=== PATIENT | male | born 1985 | race Caucasian/White ===

== ENCOUNTER 2024-09-14 13:29 | Emergency (ER) | payer MEDICAID ==
[~2024-09-14] VITALS: Ht 167.6 cm; Wt 77.0 kg
[2024-09-14 13:33] VITALS: TEMP 98.6
[2024-09-14 13:46] LABS: BASOPHILS # (AUTO) 0.1 X10'3 (0-0.2); BASOPHILS % (AUTO) 0.9 % (0-1); EOSINOPHILS # (AUTO) 0.2 X10'3 (0-0.9); HEMOGLOBIN 15.5 g/dl (14.0-17.9); LYMPHOCYTES # (AUTO) 2.3 X10'3 (1.1-4.8); MONOCYTES # (AUTO) 0.5 X10'3 (0-0.9)
[2024-09-14 13:48] LABS: EOSINOPHILS % (AUTO) 3.3 % (0-6); HEMATOCRIT 46.7 % (42.0-52.0); LYMPHOCYTES % (AUTO) 30.1 % (21-51); MEAN CORPUSCULAR HEMOGLOBIN 31.1 PG (27.0-31.0); MEAN CORPUSCULAR HGB CONC 33.2 g/dL (33.0-36.5); MEAN CORPUSCULAR VOLUME 93.5 FL (78-98); MEAN PLATELET VOLUME 7.5 FL (7.4-10.4); MONOCYTES % (AUTO) 7.3 % (2-12); NEUTROPHILS # (AUTO) 4.4 X10'3 (1.8-7.7); NEUTROPHILS % (AUTO) 58.4 % (42-75); PLATELET COUNT 260 X10'3 (140-440); RED BLOOD COUNT 4.99 X10'6 (4.70-6.10); RED CELL DISTRIBUTION WIDTH 13.4 % (11.5-14.5); WHITE BLOOD COUNT 7.5 X10'3 (4.5-11.0)
[2024-09-14 14:00] LABS: ALANINE AMINOTRANSFERASE 34 U/L (12-78); ALBUMIN/GLOBULIN RATIO 0.8 (1.1-1.5); ALKALINE PHOSPHATASE 115 IU/L (46-116); ANION GAP 8 (8-16); ASPARTATE AMINO TRANSFERASE 11 U/L (10-37); BILIRUBIN,TOTAL 0.2 MG/DL (0.1-1.0); BLOOD UREA NITROGEN 12 MG/DL (7-18); CALCIUM 8.4 MG/DL (8.5-10.1); CHLORIDE 105 MMOL/L (99-107); GLUCOSE 138 MG/DL (70-104); POTASSIUM 3.8 MMOL/L (3.5-5.1); SODIUM 140 MMOL/L (135-145); TOTAL CARBON DIOXIDE 26.8 MMOL/L (24-32); TOTAL PROTEIN 6.8 G/DL (6.4-8.2); eCRCL 113 ML/MIN; eGFR > 90 ML/MIN
[2024-09-14 14:11] LABS: PRO BRAIN NATRIURETIC PEPTIDE 70 PG/ML (0-125)
[2024-09-14] MEDS: ketorolac trometh 30MG/ML vial 30 MG/ML VIAL IV ONE (14:27)
[2024-09-14 14:33] LABS: C-REACTIVE PROTEIN 0.33 MG/DL (0.0-0.5)
[2024-09-14] MEDS ORDERED: IBUP-1985 PO (17:16)
[2024-09-14 17:47] VITALS: BP 102/71; PULSE 72; RESP 16; O2SAT 98
== END 2024-09-14 18:21 | disposition home or self-care (01) ==
LOC: ER 13:31
DX: R07.89 Other chest pain (principal); I31.9 Disease of pericardium, unspecified; F17.200 Nicotine dependence, unspecified, uncomplicated
CPT/HCPCS: 36415; 71045; 80053; 83880; 84484; 85025; 85651; 86140; 93005; 96374; 99285; J1885

== ENCOUNTER 2024-10-09 08:49 | Emergency (ER) | payer MEDICAID ==
[~2024-10-09] VITALS: Ht 167.6 cm; Wt 80.0 kg
[~2024-10-09 08:49] MED LIST: IBUP-1985 PO
[2024-10-09 08:53] VITALS: TEMP 98.6
[2024-10-09] MEDS ORDERED: OLAN20TA81 PO (09:03)
[2024-10-09] MEDS ORDERED: NAPR-1480 PO (09:03)
[2024-10-09] MEDS ORDERED: LEVE100023 PO (09:03)
[2024-10-09] MEDS ORDERED: DIVA500T4 PO (09:03)
[2024-10-09] MEDS ORDERED: levetiracetam inj 1,500 MG in normal saline 100ml IV soln 100 ML IV STA (09:06)
[2024-10-09 09:33] LABS: BASOPHILS % (AUTO) 0.4 % (0-1); EOSINOPHILS # (AUTO) 0.2 X10'3 (0-0.9); EOSINOPHILS % (AUTO) 2.2 % (0-6); HEMATOCRIT 42.9 % (42.0-52.0); HEMOGLOBIN 14.6 g/dl (14.0-17.9); LYMPHOCYTES # (AUTO) 2.2 X10'3 (1.1-4.8); LYMPHOCYTES % (AUTO) 26.3 % (21-51); MEAN CORPUSCULAR HEMOGLOBIN 30.5 PG (27.0-31.0); MEAN CORPUSCULAR VOLUME 89.9 FL (78-98); MEAN PLATELET VOLUME 7.5 FL (7.4-10.4); MONOCYTES # (AUTO) 0.6 X10'3 (0-0.9); MONOCYTES % (AUTO) 7.4 % (2-12); NEUTROPHILS # (AUTO) 5.3 X10'3 (1.8-7.7); NEUTROPHILS % (AUTO) 63.7 % (42-75); PLATELET COUNT 214 X10'3 (140-440); RED BLOOD COUNT 4.77 X10'6 (4.70-6.10); WHITE BLOOD COUNT 8.3 X10'3 (4.5-11.0)
[2024-10-09 09:39] LABS: ALANINE AMINOTRANSFERASE 43 U/L (12-78); ALBUMIN 3.3 G/DL (3.4-5.0); ALBUMIN/GLOBULIN RATIO 1.1 (1.1-1.5); ALKALINE PHOSPHATASE 103 IU/L (46-116); ANION GAP 11 (8-16); ASPARTATE AMINO TRANSFERASE 19 U/L (10-37); BILIRUBIN,TOTAL 0.2 MG/DL (0.1-1.0); BLOOD UREA NITROGEN 12 MG/DL (7-18); BUN/CREATININE RATIO 13.5 (10.0-20.0); CALCIUM 8.5 MG/DL (8.5-10.1); CHLORIDE 107 MMOL/L (99-107); CREATININE 0.89 MG/DL (0.60-1.10); GLUCOSE 102 MG/DL (70-104); SODIUM 141 MMOL/L (135-145); TOTAL CARBON DIOXIDE 23.2 MMOL/L (24-32); TOTAL PROTEIN 6.2 G/DL (6.4-8.2); eCRCL 102 ML/MIN; eGFR > 90 ML/MIN
[2024-10-09] MEDS: levetiracetamNACL 1500mg/100mL 100 ML IV STA (09:51)
[2024-10-09] MEDS: divalproex sod 250mg ER (24-hour) tablet PO STA (10:45)
[2024-10-09] MEDS: TETanus/Pertussis (Acell)/Diphther VAC/PF (Tdap-Adult) 0.5ml syringe IMVAC ONE (10:47)
[2024-10-09] MEDS ORDERED: LEVE10002 PO (11:05)
[2024-10-09] MEDS ORDERED: DIVA-81 PO (11:05)
[2024-10-09] MEDS: levetiracetam 250mg tablet PO ONE (11:37)
[2024-10-09 12:08] VITALS: BP 136/87; PULSE 84; RESP 16; O2SAT 96
== END 2024-10-09 11:43 | disposition home or self-care (01) ==
LOC: ER 08:50
DX: G40.409 Other generalized epilepsy and epileptic syndromes, not intractable, without status epilepticus (principal); Z79.899 Other long term (current) drug therapy; Z79.1 Long term (current) use of non-steroidal anti-inflammatories (NSAID); W18.30XA Fall on same level, unspecified, initial encounter; Y93.89 Activity, other specified; Y92.89 Other specified places as the place of occurrence of the external cause; Y99.8 Other external cause status
CPT/HCPCS: 36415; 80053; 85025; 90471; 90715; 93005; 96365; 99284; J1953; A6449

== ENCOUNTER 2024-10-18 19:50 | Emergency (ER) | payer MEDICAID ==
[~2024-10-18] VITALS: Ht 175.3 cm; Wt 97.2 kg
[~2024-10-18 19:50] MED LIST changes: +DIVA-81 PO; +DIVA500T4 PO; +LEVE10002 PO; +LEVE100023 PO; +NAPR-1480 PO; +OLAN20TA81 PO
--- NOTE | 2024-10-18 20:01 | ELECTROCARDIOGRAPH REPORT ---
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 Germania Maza Measurements Intervals [place] Rate: 122 P: 49 [place]: 141 QRS: 135 QRSD: 135 T: 6 QT: 335 QTc: 478 Interpretive Statements Sinus tachycardia RBBB and LPFB Probable inferior infarct, recent Lateral leads are also involved Electronically Signed On 10-18-2024 20:35:[address] Germania Maza Please click the below link to view image of tracing.
[2024-10-18 20:25] LABS: BASOPHILS # (AUTO) 0.1 X10'3 (0-0.2); BASOPHILS % (AUTO) 1.1 % (0-1); EOSINOPHILS # (AUTO) 0.3 X10'3 (0-0.9); EOSINOPHILS % (AUTO) 2.9 % (0-6); HEMATOCRIT 40.5 % (42.0-52.0); LYMPHOCYTES # (AUTO) 3.2 X10'3 (1.1-4.8); LYMPHOCYTES % (AUTO) 34.6 % (21-51); MEAN CORPUSCULAR HEMOGLOBIN 31.2 PG (27.0-31.0); MEAN CORPUSCULAR HGB CONC 34.6 g/dL (33.0-36.5); MEAN CORPUSCULAR VOLUME 90.4 FL (78-98); MEAN PLATELET VOLUME 7.4 FL (7.4-10.4); MONOCYTES # (AUTO) 0.8 X10'3 (0-0.9); MONOCYTES % (AUTO) 8.6 % (2-12); NEUTROPHILS # (AUTO) 4.8 X10'3 (1.8-7.7); NEUTROPHILS % (AUTO) 52.8 % (42-75); PLATELET COUNT 276 X10'3 (140-440); RED BLOOD COUNT 4.48 X10'6 (4.70-6.10); RED CELL DISTRIBUTION WIDTH 14.7 % (11.5-14.5); WHITE BLOOD COUNT 9.1 X10'3 (4.5-11.0)
[2024-10-18 20:43] LABS: ALANINE AMINOTRANSFERASE 48 U/L (12-78); ALBUMIN 3.4 G/DL (3.4-5.0); ALBUMIN/GLOBULIN RATIO 1.1 (1.1-1.5); ALKALINE PHOSPHATASE 107 IU/L (46-116); ANION GAP 10 (8-16); ASPARTATE AMINO TRANSFERASE 15 U/L (10-37); BILIRUBIN,TOTAL 0.2 MG/DL (0.1-1.0); BLOOD UREA NITROGEN 12 MG/DL (7-18); BUN/CREATININE RATIO 11.5 (10.0-20.0); CALCIUM 8.7 MG/DL (8.5-10.1); CHLORIDE 105 MMOL/L (99-107); CREATININE 1.04 MG/DL (0.60-1.10); ETHANOL < 10 MG/DL (<10); GLUCOSE 120 MG/DL (70-104); POTASSIUM 3.9 MMOL/L (3.5-5.1); SODIUM 139 MMOL/L (135-145); TOTAL CARBON DIOXIDE 23.9 MMOL/L (24-32); TOTAL PROTEIN 6.5 G/DL (6.4-8.2); eCRCL 96 ML/MIN; eGFR 80 ML/MIN
[2024-10-18 20:52] LABS: VALPROATE < 3.0 UG/ML (50-100)
[2024-10-18 21:28] LABS: URINE AMPHETAMINE SCREEN NEGATIVE (Neg); URINE BARBITUATE SCREEN NEGATIVE (Neg); URINE BENZODIAZEPINES SCREEN NEGATIVE (Neg); URINE CANNABINOID SCREEN POSITIVE (Neg); URINE COCAINE SCREEN NEGATIVE (Neg); URINE METHADONE SCREEN NEGATIVE (Neg); URINE OPIATE SCREEN NEGATIVE (Neg); URINE PHENCYCLIDINE SCREEN NEGATIVE (Neg)
--- NOTE | 2024-10-18 22:56 | Physician Documentation ---
History of Present Illness ~ Chief Complaint: Seizure Stated Complaint: SZ Time Seen by MD: 22:48 OK to notify your PCP?: Yes Primary Medical Doctor: NONE Source: patient Mode of Arrival: EMS Exam Limitations: no limitations HPI This is a 31-year-old male with a longstanding history of seizures since he was a child. The patient states that is he took his nighttime medication they went outside to have a cigarette after which he had a seizure. He believes the cigarette may have triggered a seizure. He says he gets seizures frequently and takes Keppra and Depakote for seizures. By the time I evaluated the patient he stated that he felt fine. He denies pain or injury from the seizure activity. Medication Reconciliation Allergies: Coded Allergies: No Known Allergies (Unverified , 10/18/24) Scheduled Divalproex Sodium (Depakote Er), 2 TAB PO HS, (Reported) Divalproex Sodium (Depakote Er), 1 TAB PO DAILY Ibuprofen (Ibuprofen), 1 TAB PO TID Levetiracetam (Levetiracetam), 1 TAB PO BID, (Reported) Levetiracetam (Keppra), 1 TAB PO Q12H Naproxen (Naproxen), 1 TAB PO BID, (Reported) Olanzapine (Olanzapine), 1 TAB PO HS, (Reported) Physical Exam Vital Signs: Temperature: 98.3, Source: Oral, Heart Rate: 122, Respiratory Rate: 21, BP: 133/80, Pulse Oximetry: 91, Weight: 97.200 Oxygen Flow Rate: 2.0 Pulse Oximetry Reflects: adequate oxygenation General Appearance: alert, WD/WN, no apparent distress Head: no evidence of injury Face: normal Pupils/EOM/Fundus: PERRLA, EOM intact Nose: normal inspection Mouth: normal inspection Neck: normal inspection Respiratory: no respiratory distress Chest: no accessory muscle use Back: normal inspection Extremities: no evidence of injury Skin: normal color Neurologic: oriented x4, position classification specialist II-XII nml as tested, memory intact, oriented to time, oriented to person, oriented to place, oriented to events Motor / Sensory: no motor deficit Cerebellar Function: normal Coordination / Gait: normal gait Affect: appropriate Thoughts/Hallucinations: normal thought pattern Progress Results/Orders Reviewed/noted all lab results: Yes Results/Orders Vital Signs 10/18/24 10/18/24 19:52 20:05 Temp 98.3 Pulse 122 122 Resp 15 21 B/P (MAP) 136/79 133/80 (97) Pulse Ox 92 91 O2 Flow Rate 1.0 2.0 Laboratory Tests Test 10/18/24 20:07 10/18/24 21:06 White Blood Count 9.1 Red Blood Count 4.48 L Hemoglobin 14.0 Hematocrit 40.5 L Mean Corpuscular Volume 90.4 Mean Corpuscular Hemoglobin 31.2 H Mean Corpuscular Hemoglobin Concent 34.6 Red Cell Distribution Width 14.7 H Platelet Count 276 Mean Platelet Volume 7.4 Neutrophils (%) (Auto) 52.8 Lymphocytes (%) (Auto) 34.6 Monocytes (%) (Auto) 8.6 Eosinophils (%) (Auto) 2.9 Basophils (%) (Auto) 1.1 H Neutrophils # (Auto) 4.8 Lymphocytes # (Auto) 3.2 Monocytes # (Auto) 0.8 Eosinophils # (Auto) 0.3 Basophils # (Auto) 0.1 CBC Comment Sodium Level 139 Potassium Level 3.9 Chloride Level 105 Carbon Dioxide Level 23.9 L Anion Gap 10 Blood Urea Nitrogen 12 Creatinine 1.04 Estimated GFR/1.73 m2 80 BUN/Creatinine Ratio 11.5 Glucose Level 120 H Calcium Level 8.7 Total Bilirubin 0.2 Aspartate Amino Transf (AST/SGOT) 15 Alanine Aminotransferase (ALT/SGPT) 48 Alkaline Phosphatase 107 Total Protein 6.5 Albumin 3.4 Globulin 3.1 Albumin/Globulin Ratio 1.1 Chemistry Comments Valproic Acid (Depakene) Level < 3.0 L Ethyl Alcohol Level < 10 Urine Opiates Screen Negative Urine Methadone Screen Negative Urine Fentanyl Screen Negative Urine Barbiturates Screen Negative Urine Phencyclidine Screen Negative Urine Amphetamines Screen Negative Urine Benzodiazepines Screen Negative Urine Cocaine Screen Negative Urine Cannabinoids Screen Positive Drug Screen Comment EKG/XRAY/CT/US/VASC/MRI EKG : Intepreting Monitor?: No Additional Comment Twelve lead EKGs interpreted by me: Sinus tachycardia rate of 122. Right bundle-branch block and left fascicular block. Probable anterior infarct age indeterminate. Medical Decision Making Findings The time I saw with the patient it was a couple of hours after a seizure and he says he was feeling fine and acting appropriate. He was no evidence of injury from the seizure activity. He believes the cigarettes that he smoked right after taking in his nighttime medications which were Keppra and Depakote may have triggered a seizure. The patient feels fine and states he was tired and wants to go home. He was no focal neuro deficits or any concerning findings on exam. His workup was all unremarkable Additional Comment Seizure. Epilepsy. Postictal. Departure Disposition: HOME / SELF CARE / HOMELESS Impression: Primary Impression: Seizure disorder Condition: Stable Discharge Instructions: Seizure, Adult Additional Instructions: Continue with the medications. Follow up with the primary care physician or your neurologist if you happened. Return to the ER for any worsening or concerning symptoms Referrals: NO PRIMARY CARE PROVIDER (PCP) Signature Scribe Signature: No scribe Attestation: The note accurately reflects work and decisions made by me.Yokasta NEAL 10/18/24 22:56 YOKASTA RED Oct 18, 2024 22:56
[2024-10-18 22:59] VITALS: BP 127/99; PULSE 88; RESP 17; TEMP 98; O2SAT 96
== END 2024-10-18 23:17 | disposition home or self-care (01) ==
LOC: ER 19:51
DX: G40.909 Epilepsy, unspecified, not intractable, without status epilepticus (principal)
CPT/HCPCS: 36415; 80053; 80164; 80305; 80320; 85025; 93005; 99285

== ENCOUNTER 2024-11-03 17:07 | Emergency (ER) | payer MEDICAID ==
[~2024-11-03] VITALS: Ht 162.6 cm; Wt 72.6 kg
[2024-11-03 17:10] VITALS: BP 132/95; PULSE 91; RESP 15; TEMP 97.8; O2SAT 95
--- NOTE | 2024-11-03 18:51 | Physician Documentation ---
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 Patient is in a treatment recovery program for methamphetamine. Denies alcohol use. Patient states that he was smoking marijuana oil. Patient states that he has seizures when he does this. Patient is currently on Depakote, and Keppra. Seizure activity stated patient presents since from spinal meningitis. Patient is seizure previous 2 yesterday at 7:00 p.m. was 2 weeks ago and he states it was for the same reason he was smoking THC oil. Patient states he has been clean from meth for between 6 and 8 weeks. Patient states the seizure activity was witnessed and claims it was approximately 90 seconds. Day of Onset: November 02, 2024 Time of Onset: 17:00 Timing: days ago Quality: tonic-clonic Episodes: single, witnessed Prior to Seizure: no symptoms During Seizure: awake History Of: seizure disorder, substance abuse Compliant with Medications: yes Associated Symptoms: Denies: denies, headache, altered, nausea, vomiting, fever, other Medication Reconciliation Allergies: Coded Allergies: No Known Allergies (Unverified , 10/18/24) Scheduled Divalproex Sodium (Depakote Er), 2 TAB PO HS, (Reported) Divalproex Sodium (Depakote Er), 1 TAB PO DAILY Ibuprofen (Ibuprofen), 1 TAB PO TID Levetiracetam (Levetiracetam), 1 TAB PO BID, (Reported) Levetiracetam (Keppra), 1 TAB PO Q12H Naproxen (Naproxen), 1 TAB PO BID, (Reported) Olanzapine (Olanzapine), 1 TAB PO HS, (Reported) Past Medical History Past Medical History: Seizures Past Surgical History: no surgical history Smoking Status: Current every day smoker Alcohol Use: None Drug Use: marijuana, methamphetamine Lives with: Other (Rehab facility) Review of Systems All Other Systems at this time: Reviewed and Negative Neurological: Reports: see HPI Physical Exam Vital Signs: RN Vital Signs have been reviewed: Yes, Temperature: 97.8, Source: Temporal, Heart Rate: 91, Respiratory Rate: 15, BP: 132/95, Pulse Oximetry: 95, Weight: 72.600 General Appearance: alert, WD/WN, no apparent distress Head: no evidence of injury; No: tenderness Face: normal; No: tender Pupils/EOM/Fundus: PERRLA, EOM intact Respiratory: lungs clear, normal breath sounds, no respiratory distress Chest: no accessory muscle use Cardiovascular: regular rate, rhythm Neurologic: oriented x4 Motor / Sensory: no motor deficit, no sensory deficit, no pronator drift Cerebellar Function: normal Coordination / Gait: normal finger to nose, normal gait, negative Romberg's sign Affect: flat Thoughts/Hallucinations: normal thought pattern Progress Results/Orders Results/Orders Vital Signs 11/03/24 17:10 Temp 97.8 Pulse 91 Resp 15 B/P (MAP) 132/95 Pulse Ox 95 Medical Decision Making Differential Dx:Considerations: Include: Psychogenic seizure, Due to alcohol withdrawl, Anticonvulsant withdrawl, Due to closed head injury, Due to drug ingestion, Idiopathic, Syncope, Encephalopathy Departure Time of Disposition: 18:53 Disposition: 01 HOME / SELF CARE / HOMELESS Impression: Primary Impression: Convulsions Additional Impression: Seizure disorder Condition: Stable Discharge Instructions: Seizure, Adult Additional Instructions: Take seizure medications as prescribed and sustained from any illicit drug use including THC oil. Follow-up with primary care to potentially receive a neurology referral to further evaluate seizure-like activity. Referrals: NO PRIMARY CARE PROVIDER (PCP) Education Educated: Patient Educated regarding: diagnosis, treatment, need for follow up Signature Scribe Signature: No scribe Attestation: The note accurately reflects work and decisions made by me.Kalyani CHARLES 11/03/24 18:54 KALYANI NORTH NP November 03, 2024 18:51
== END 2024-11-03 19:01 | disposition home or self-care (01) ==
LOC: ER 17:09
DX: G40.909 Epilepsy, unspecified, not intractable, without status epilepticus (principal); F12.90 Cannabis use, unspecified, uncomplicated; F15.90 Other stimulant use, unspecified, uncomplicated; F17.200 Nicotine dependence, unspecified, uncomplicated; Z79.899 Other long term (current) drug therapy
CPT/HCPCS: 99281

== ENCOUNTER 2024-12-09 22:47 | Emergency (ER) | payer MEDICAID ==
[~2024-12-09] VITALS: Ht 167.6 cm; Wt 77.9 kg
--- NOTE | 2024-12-09 23:16 | ELECTROCARDIOGRAPH REPORT ---
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
--- NOTE | 2024-12-09 23:58 | RADIOLOGY REPORT ---
COMPUTERIZED TOMOGRAPHY OF THE HEAD WITHOUT CONTRAST REASON FOR STUDY: SEIZURE COMPARISON: None TECHNIQUE: Helical tomographic scans were obtained through the brain. 2-D coronal and sagittal refor matted images are provided. Automated exposure control was used. RADIATION DOSE: CTDI: 49 mGy DLP: 846 mGy-cm FINDINGS: No suspicious intracranial hyperdensity to suggest acute blood. There is no mass effect n or midline shift. There is no hydrocephalus. The suprasellar cistern is intact. The calvarium is inta ct. The visualized mastoid air cells and paranasal sinuses are clear. IMPRESSION: No acute intracranial abnormality.
[2024-12-10 00:06] LABS: BASOPHILS # (AUTO) 0.1 X10'3 (0-0.2); EOSINOPHILS # (AUTO) 0.1 X10'3 (0-0.9); EOSINOPHILS % (AUTO) 1.5 % (0-6); HEMATOCRIT 42.5 % (42.0-52.0); HEMOGLOBIN 14.9 g/dl (14.0-17.9); LYMPHOCYTES # (AUTO) 1.4 X10'3 (1.1-4.8); LYMPHOCYTES % (AUTO) 15.2 % (21-51); MEAN CORPUSCULAR HEMOGLOBIN 32.6 PG (27.0-31.0); MEAN CORPUSCULAR VOLUME 93.1 FL (78-98); MEAN PLATELET VOLUME 7.7 FL (7.4-10.4); MONOCYTES # (AUTO) 0.6 X10'3 (0-0.9); MONOCYTES % (AUTO) 5.9 % (2-12); NEUTROPHILS # (AUTO) 7.2 X10'3 (1.8-7.7); NEUTROPHILS % (AUTO) 76.4 % (42-75); PLATELET COUNT 243 X10'3 (140-440); RED BLOOD COUNT 4.56 X10'6 (4.70-6.10); RED CELL DISTRIBUTION WIDTH 13.3 % (11.5-14.5); WHITE BLOOD COUNT 9.4 X10'3 (4.5-11.0)
--- NOTE | 2024-12-10 00:23 | Physician Documentation ---
History of Present Illness ~ Chief Complaint: Seizure Stated Complaint: SEIZURES Time Seen by MD: 00:10 Primary Medical Doctor: NONE Mode of Arrival: EMS HPI 39-year-old male, history of epilepsy who presents with a seizure. Per EMS, the patient reportedly had a witnessed tonic-clonic seizure, witnessed by someone at his residence. He did hit his head and has a wound to his left forehead. He was placed in a C-collar. The patient tells me that he had a normal day today. He woke up after his seizure, so it must have happened at night. He denies having a headache or neck pain. He denies feeling ill, having fevers, nausea vomiting or diarrhea. He tells me he has been out of his seizure medications for the past 2 days. He takes Keppra and Depakote. No substance use. No other acute concerns. Medication Reconciliation Allergies: Coded Allergies: No Known Allergies (Unverified , 10/18/24) Scheduled Divalproex Sodium (Depakote Er), 2 TAB PO HS, (Reported) Divalproex Sodium (Depakote Er), 1 TAB PO DAILY Divalproex Sodium (Depakote Er), 2 TAB PO HS Ibuprofen (Ibuprofen), 1 TAB PO TID Levetiracetam (Levetiracetam), 1 TAB PO BID, (Reported) Levetiracetam (Keppra), 1 TAB PO Q12H Levetiracetam (Keppra), 1 TAB PO Q12H Naproxen (Naproxen), 1 TAB PO BID, (Reported) Olanzapine (Olanzapine), 1 TAB PO HS, (Reported) Past Medical History Past Medical History: Seizures Past Surgical History: no surgical history Alcohol Use: None Drug Use: marijuana, methamphetamine Lives with: Other Review of Systems Constitutional: Denies: fever Neurological: Reports: tonic-clonic seizures; Denies: headache Physical Exam Vital Signs: Heart Rate: 102, Respiratory Rate: 18, BP: 123/81, Pulse Oximetry: 98, Weight: 77.900 Oxygen Flow Rate: 0 Physical Exam General: This is an overall healthy-appearing young man lying quietly in bed sleeping HEENT: Superficial abrasion of the left eyebrow, otherwise no traumatic findings to the head or face, oropharynx is moist, no tongue laceration Heart: Mild tachycardic, appears regular Lungs: normal work of breathing, normal oxygen saturation on room air Abdomen: Soft, nondistended, nontender all quadrants Extremities: Warm and well-perfused, no traumatic findings Neuro: Alert and oriented, no focal deficits Psychiatric: Calm and cooperative with exam Progress Results/Orders Results/Orders Orders - STEVAN RIVERA MD Levetiracetam, S (12/09/24 23:09) Ct Head (12/09/24 23:00) Completed Orders - STEVAN RIVERA MD Ct Head (12/09/24 23:00) Cbc/Diff (12/09/24 23:09) Valproate (12/09/24 23:09) CMP (12/09/24 23:09) Stat Ekg (12/09/24 ) Levetiracetam-[id number]/100ml (Levetira (12/10/24 00:27) Levetiracetam-Nacl 500mg/100ml (Levetira (12/10/24 08:00) Divalproex Sod Er-24 Hr Tablet (Depakote (12/10/24 00:20) Levetiracetam-[id number]/100ml (Levetira (12/10/24 00:30) Medications Received in ER Medications (Trade) Dose Ordered Sig/Eva Route PRN Reason Start Time Stop Time Status Last Admin Dose Admin (Depakote ER tablet) 500 mg ONCE ONCE PO 12/10/24 00:20 12/10/24 00:22 DC 12/10/24 01:05 500 MG Levetiracetam 100 ml @ 400 mls/hr ONCE ONCE IV 12/10/24 00:30 12/10/24 00:41 DC 12/10/24 01:04 400 MLS/HR Vital Signs 12/09/24 12/09/24 12/09/24 12/10/24 22:55 23:00 23:02 00:00 Pulse 118 102 100 Resp 18 16 18 17 B/P (MAP) 130/93 123/81 (95) 125/82 (96) Pulse Ox 94 98 98 O2 Flow Rate 0 0 12/10/24 12/10/24 02:25 02:31 Pulse 98 92 Resp 16 16 B/P (MAP) 120/80 (93) 122/86 Pulse Ox 99 98 Laboratory Tests Test 12/09/24 23:37 White Blood Count 9.4 Red Blood Count 4.56 L Hemoglobin 14.9 Hematocrit 42.5 Mean Corpuscular Volume 93.1 Mean Corpuscular Hemoglobin 32.6 H Mean Corpuscular Hemoglobin Concent 35.0 Red Cell Distribution Width 13.3 Platelet Count 243 Mean Platelet Volume 7.7 Neutrophils (%) (Auto) 76.4 H Lymphocytes (%) (Auto) 15.2 L Monocytes (%) (Auto) 5.9 Eosinophils (%) (Auto) 1.5 Basophils (%) (Auto) 1.0 Neutrophils # (Auto) 7.2 Lymphocytes # (Auto) 1.4 Monocytes # (Auto) 0.6 Eosinophils # (Auto) 0.1 Basophils # (Auto) 0.1 CBC Comment Sodium Level 141 Potassium Level 3.7 Chloride Level 104 Carbon Dioxide Level 25.3 Anion Gap 12 Blood Urea Nitrogen 9 Creatinine 1.01 Estimated GFR/1.73 m2 83 BUN/Creatinine Ratio 8.9 L Glucose Level 94 Calcium Level 8.8 Total Bilirubin 0.2 Aspartate Amino Transf (AST/SGOT) 18 Alanine Aminotransferase (ALT/SGPT) 36 Alkaline Phosphatase 93 Total Protein 6.8 Albumin 3.5 Globulin 3.3 Albumin/Globulin Ratio 1.1 Chemistry Comments Valproic Acid (Depakene) Level < 3.0 L EKG/XRAY/CT/US/VASC/MRI CT : Impression I personally reviewed the CT scan, and this shows no acute fracture, intracranial hemorrhage, or mass Medical Decision Making Differential Dx:Considerations: Include: Psychogenic seizure, Due to alcohol w ithdrawl, Anticonvulsant withdrawl, Due to closed head injury, Due to drug ingestion Assessment 39-year-old male presenting with a seizure. He has a history of epilepsy, and reports being out of his medications for the past 2 days. No infectious symptoms. Denies any substance use. He did hit his head, but head CT shows no acute hemorrhage or other abnormality. Mi he was observed here in the ER he had no further seizures. Laboratory testing is unremarkable. He was given a loading dose of Keppra as well as a dose of Dilantin. Overall, I suspect that he had a seizure because he does not have his medications. I do not feel that any further workup or testing is indicated at this time. He will be discharged with a prescription for his seizure medications, outpatient follow up, and return precautions. Departure Time of Disposition: 01:19 Disposition: HOME / SELF CARE / HOMELESS Impression: Primary Impression: Epilepsy Condition: Improved Discharge Instructions: Epilepsy Referrals: NO PRIMARY CARE PROVIDER (PCP) Prescriptions Divalproex Sodium (Depakote Er) 500 Mg Tab.sr.24h 2 TAB PO HS for 30 Days, #60 TAB 2 Refills Prov: STEVAN RIVERA MD 12/10/24 Levetiracetam (Keppra) 1,000 Mg Tablet 1 TAB PO Q12H for 30 Days, #60 TAB 1 Refill Prov: STEVAN RIVERA MD 12/10/24 Education Educated: Patient Educated regarding: diagnosis, treatment Signature Scribe Signature: tom Attestation: STEVAN Sanderson MD Dec 10, 2024 00:23
[2024-12-10] MEDS ORDERED: levetiracetam-NACL1000mg/100ml 100 ML IV SCH (00:27)
[2024-12-10 00:38] LABS: GLUCOSE 94 MG/DL (70-104)
[2024-12-10 00:39] LABS: ALANINE AMINOTRANSFERASE 36 U/L (12-78); ALBUMIN 3.5 G/DL (3.4-5.0); ALBUMIN/GLOBULIN RATIO 1.1 (1.1-1.5); ALKALINE PHOSPHATASE 93 IU/L (46-116); ANION GAP 12 (8-16); ASPARTATE AMINO TRANSFERASE 18 U/L (10-37); BILIRUBIN,TOTAL 0.2 MG/DL (0.1-1.0); BLOOD UREA NITROGEN 9 MG/DL (7-18); BUN/CREATININE RATIO 8.9 (10.0-20.0); CALCIUM 8.8 MG/DL (8.5-10.1); CHLORIDE 104 MMOL/L (99-107); CREATININE 1.01 MG/DL (0.60-1.10); POTASSIUM 3.7 MMOL/L (3.5-5.1); SODIUM 141 MMOL/L (135-145); TOTAL CARBON DIOXIDE 25.3 MMOL/L (24-32); TOTAL PROTEIN 6.8 G/DL (6.4-8.2); eCRCL 89 ML/MIN; eGFR 83 ML/MIN
[2024-12-10 00:43] LABS: VALPROATE < 3.0 UG/ML (50-100)
[2024-12-10] MEDS: levetiracetam-NACL1000mg/100ml 100 ML IV ONE (01:04)
[2024-12-10] MEDS: divalproex sod 250mg ER (24-hour) tablet PO ONE (01:05)
[2024-12-10] MEDS ORDERED: LEVE10002 PO (01:20)
[2024-12-10] MEDS ORDERED: DIVA500T5 PO (01:20)
[2024-12-10 02:31] VITALS: BP 122/86; PULSE 92; RESP 16; O2SAT 98
[2024-12-10] MEDS ORDERED: Levetiracetam-NACL 500mg/100ml 100 ML IV ONE (08:00)
[2024-12-11] MEDS ORDERED: LEVE10002 PO (22:52)
== END 2024-12-10 03:20 | disposition home or self-care (01) ==
LOC: ER 22:47
DX: G40.909 Epilepsy, unspecified, not intractable, without status epilepticus (principal); F12.90 Cannabis use, unspecified, uncomplicated; F15.90 Other stimulant use, unspecified, uncomplicated; Z79.899 Other long term (current) drug therapy
CPT/HCPCS: 36415; 70450; 80053; 80164; 80177; 85025; 93005; 96374; 99285; J1953

== ENCOUNTER 2024-12-11 21:51 | Emergency (ER) | payer MEDICAID ==
[~2024-12-11] VITALS: Ht 167.6 cm; Wt 85.0 kg
[~2024-12-11 21:51] MED LIST changes: +DIVA500T5 PO
[2024-12-11 21:58] VITALS: TEMP 98.5
--- NOTE | 2024-12-11 22:07 | ELECTROCARDIOGRAPH REPORT ---
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
[2024-12-11] MEDS ORDERED: LEVE10002 PO (22:52)
--- NOTE | 2024-12-11 22:52 | Physician Documentation ---
History of Present Illness ~ Chief Complaint: Seizure Stated Complaint: SIEZURES Time Seen by MD: 22:19 Primary Medical Doctor: NONE HPI 39-year-old male presents to the ED with ongoing concerns over seizures. He states he has had epilepsy as all life perineum was recently seen here in prescribed Depakote and Keppra. 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 Based on looking in his chart it looks like there may have been an electronic error. Had a seizure [place] the mall. No longer postictal and show no showing no signs of previous seizure other than general malaise Patient is requesting a prescription for Keppra. Day of Onset: Dec 11, 2024 Medication Reconciliation Allergies: Coded Allergies: No Known Allergies (Unverified , 10/18/24) Scheduled Divalproex Sodium (Depakote Er), 2 TAB PO HS, (Reported) Divalproex Sodium (Depakote Er), 1 TAB PO DAILY Divalproex Sodium (Depakote Er), 2 TAB PO HS Ibuprofen (Ibuprofen), 1 TAB PO TID Levetiracetam (Levetiracetam), 1 TAB PO BID, (Reported) Levetiracetam (Keppra), 1 TAB PO Q12H Levetiracetam (Keppra), 1 TAB PO Q12H Levetiracetam (Keppra), 1 TAB PO Q12H Naproxen (Naproxen), 1 TAB PO BID, (Reported) Olanzapine (Olanzapine), 1 TAB PO HS, (Reported) Past Medical History Past Medical History: Seizures Past Surgical History: no surgical history Alcohol Use: None Drug Use: marijuana, methamphetamine Lives with: Other Review of Systems All Other Systems at this time: Reviewed and Negative ROS As stated above in the HPI, otherwise all systems are reviewed and negative. Physical Exam Vital Signs: Temperature: 98.5, Source: Temporal, Heart Rate: 106, Respiratory Rate: 18, BP: 134/84, Pulse Oximetry: 93, Weight: 85.000 Oxygen Flow Rate: 0 Physical Exam General: Alert, no apparent distress. Respiratory: Lungs clear, no respiratory distress. Cardiovascular: Regular rate and rhythm, no murmurs. Neurologic: Oriented x4. Psychiatric: Normal mood and affect. Skin: Normal color, warm and dry. No edema, no ecchymosis. Progress Results/Orders Results/Orders Completed Orders - JAYJAY KNOWLES NP Levetiracetam Tablet (Keppra Tablet) (12/11/24 22:55) Medications Received in ER Medications (Trade) Dose Ordered Sig/Eva Route PRN Reason Start Time Stop Time Status Last Admin Dose Admin (Keppra tablet) 1,000 mg ONCE ONCE PO 12/11/24 22:55 12/11/24 22:56 DC 12/11/24 23:16 1,000 MG Vital Signs 12/11/24 12/11/24 12/11/24 21:58 22:00 23:09 Temp 98.5 Pulse 106 85 85 Resp 18 16 16 B/P (MAP) 134/84 116/78 (91) 116/78 Pulse Ox 93 96 96 O2 Flow Rate 0 0 Medical Decision Making Findings Provider a replacement dose of Keppra while in the ED and I sent the appropriate prescription to his pharmacy. Patient verbalized understanding pick it up verbalized appreciation and requested to be discharged Differential Dx:Considerations: Include: Hyperventilation, Psychogenic seizure, Due to alcohol withdrawl, Anticonvulsant withdrawl, Due to closed head injury, Due to CVA/TIA, Due to drug ingestion, Due to eclampsia, Due to hypocalcemia, Due to hypoglycemia, Due to hyponatremia, Due to hypoxemia, Idiopathic, Due to mass lesion, Due to meningitis, Syncope, Encephalopathy, Epilepsy-break through, Epilepsy-status, Other Departure Disposition: 01 HOME / SELF CARE / HOMELESS Impression: Primary Impression: Epilepsy Condition: Stable Discharge Instructions: Epilepsy Referrals: NO PRIMARY CARE PROVIDER (PCP) Prescriptions Levetiracetam (Keppra) 1,000 Mg Tablet 1 TAB PO Q12H for 30 Days, #60 TAB 0 Refills Prov: JAYJAY KNOWLES NP 12/11/24 Signature Scribe Signature: b Attestation: Scribed for Jayjay Knowles Christmas Tree Grower by Jayjay Romeo NP . 12/11/24 23:59 JAYJAY KNOWLES NP Dec 11, 2024 22:52
[2024-12-11 23:09] VITALS: BP 116/78; PULSE 85; RESP 16; O2SAT 96
[2024-12-11] MEDS: levetiracetam 250mg tablet PO ONE (23:16)
== END 2024-12-11 23:35 | disposition home or self-care (01) ==
LOC: ER 21:52
DX: G40.909 Epilepsy, unspecified, not intractable, without status epilepticus (principal); F12.90 Cannabis use, unspecified, uncomplicated; F15.90 Other stimulant use, unspecified, uncomplicated; Z79.899 Other long term (current) drug therapy
CPT/HCPCS: 93005; 99284